=== PATIENT | female | born 1965 | race Caucasian/White ===

== ENCOUNTER 2016-08-28 15:45 | Emergency (ER) | payer MEDICAID, OTHER ==
[~2016-08-28] VITALS: Ht 152.4 cm; Wt 64.5 kg
[2016-08-28 16:06] VITALS: Ht 152.4 cm; Wt 64.5 kg
--- NOTE | 2016-08-28 18:21 | ERA ---
ER Documentation Chief Complaint Date/Time DATE: 08/28/16 TIME: 18:21 Chief Complaint HEADACHE X 1 MONTH GOT WORSE TODAY HPI The patient is a 50-year-old female, presenting to the ER because of intermittent frontal headache for more than a month, usually relieved with Advil. She denies fever, blurred vision, facial pain, neck pain, chest pain, dyspnea, abdominal pain, vomiting, dysuria. She does not smoke nor drink.. He has a lot of stress in her life at this time. Past medical history: Hypertension Past surgical history: None ROS All systems reviewed and are negative except as per history of present illness. Medications Home Meds Active Scripts Ibuprofen* (Motrin*) 600 Mg Tab, 600 MG PO Q6H Y for PAIN AND OR ELEVATED TEMP, #30 TAB Prov:BRADLEY DEVI MD 08/28/16 Physical Exam Vitals Vital Signs Date Time Temp Pulse Resp B/P Pulse Ox O2 Delivery O2 Flow Rate FiO2 08/28/16 16:06 98.0 91 19 137/74 100 Physical Exam Const: No acute distress. Head: Atraumatic. Eyes: Normal Conjunctiva. ENT: Normal External Ears, Nose and Mouth. Neck: Full range of motion. No meningismus. Resp: Clear to auscultation bilaterally. Cardio: Regular rate and rhythm, no murmurs. Abd: Soft, non distended, normal bowel sounds, non tender. Skin: No petechiae or rashes. Back: No midline or flank tenderness. Ext: No cyanosis, or edema. Neur: Awake and alert. No focal deficit Psych: Normal Mood and Affect. Procedures/MDM MEDICAL MAKING DECISION: The patient is a 50-year-old female, presenting with acute headache of unclear etiology, most likely due to acute stress. The differential diagnoses considered include but are not limited to subarachnoid hemorrhage, occult trauma, CVA, meningitis, encephalitis, hypertension, tension , migraine, cluster, narcotic withdrawal, cervical spine disease. Departure Diagnosis: Primary Impression: Headache Additional Impression: Stress Condition: Good Comments I discussed the findings with the patient. I advised the patient to follow-up with the primary physician in about 1-2 days, sooner if needed and return if any concern. She was discharged with BRADLEY Leavitt MD Aug 28, 2016 18:21
[2016-08-28] MEDS ORDERED: IBUP-1542 PO (18:35)
[2016-08-28 18:42] VITALS: BP 132/71; PULSE 74; RESP 16; TEMP 98.3
== END 2016-08-28 18:43 | disposition home or self-care (01) ==
LOC: FTE 15:45
DX: R51 Headache (principal); F43.9 Reaction to severe stress, unspecified; I10 Essential (primary) hypertension
CPT/HCPCS: 99283

== ENCOUNTER 2018-04-25 14:56 | Emergency (ER) | END 2018-04-25 16:36 | disposition home or self-care (01) ==